=== PATIENT | male | born 1995 | race Two or more races ===

== ENCOUNTER 2021-05-23 22:42 | Emergency (ER) | payer MEDICAID ==
[~2021-05-23] VITALS: Ht 180.3 cm; Wt 127.3 kg
--- NOTE | 2021-05-23 23:11 | PHYS DOC ---
Past History Past Medical History: Sciatica General Adult HPI: HPI: ". I got really bad back pain.. I ve had it for 3 lyrs. but last two weeks it so severe..." Patient is a 26 year old male who presents with above hx and complaints lumbar sacral back pain. Patient localizes pain to lumbar area. There is some radiation in to the sciatic nerves bilaterally. Patient denies any recent trauma. No history of fever or chills. No problems with defecation or urination. Patient has had somewhat chronic back pain for the last 3 years. But has had a recent exacerbation last 2 weeks. Does have findings of paralumbar muscle spasm. Patient denies any history immunosuppression. Patient denies any history of new trauma. Patient denies any history of travel. Patient does not have a primary care physician he follows . Patient has been using Tylenol and ibuprofen for his discomfort. Review of Systems: Review of Systems: Constitutional: Denies fever or chills Eyes: Denies change in visual acuity HENT: Denies nasal congestion or sore throat Respiratory: Denies cough or shortness of breath Cardiovascular: Denies chest pain or edema GI: Denies abdominal pain, nausea, vomiting, bloody stools or diarrhea : Denies dysuria Musculoskeletal: Complaints of lower lumbar back pain Integument: Denies rash Neurologic: Denies headache, focal weakness or sensory changes Endocrine: Denies polyuria or polydipsia Lymphatic: Denies swollen glands Psychiatric: Denies depression or anxiety Family History: Family History: Noncontributory to presentation Current Medications: Current Meds: See nursing for home meds Allergies: Allergies: No known drug allergies Physical Exam: PE: Constitutional: Well developed, well nourished, no acute distress, non-toxic appearance. [] HENT: Normocephalic, atraumatic, bilateral external ears normal, oropharynx moist, no oral exudates, nose normal. [] Eyes: PERRLA, EOMI, conjunctiva normal, no discharge. [] Neck: Normal range of motion, no tenderness, supple, no stridor. [] Cardiovascular:Heart rate regular rhythm, no murmur [] Lungs & Thorax: Bilateral breath sounds clear to auscultation [] Abdomen: Bowel sounds normal, soft, no tenderness, no masses, no pulsatile masses. No ascites male. Testicles descended. No saddle loss. Skin: Warm, dry, no erythema, no rash. Tattoos Back: Lumbar sacral muscle spasms and tenderness, no midline tenderness, no CVA tenderness. Does have tenderness along the sciatic nerve bilaterally into hips. Extremities: No tenderness, no cyanosis, no clubbing, ROM intact, no edema. Pain with straight leg lift bilaterally. Neurologic: Alert and oriented X 3, normal motor function, normal sensory function, no focal deficits noted. [] Psychologic: Affect anxious, judgement normal, mood normal. [] EKG: EKG: [] Radiology/Procedures: Radiology/Procedures: [][address] [address] IMAGING REPORT Signed PATIENT: [place] DIAL RACCOUNT: [id number] : 1995 LOCATION: ER AGE: 26 SEX: M EXAM STATUS: REG ER ORD. PHYSICIAN: CASSIDY PICKENS MD REASON: marked increase back pain, mid line, CHRONIC LBP, OLD INJURY PROCEDURE: CT LUMBAR SPINE WO CONTRAST CT LUMBAR SPINE WO Date: 05/23/2021 11:54 PM Indication: marked increase back pain, mid line, CHRONIC LBP, OLD INJURY Comparison: None. Technique: Helical CT images of the lumbar spine were obtained without contrast. Coronal and sagittal reformatted images were also performed. One or more of the following dose reduction techniques were utilized: Automated exposure control (AEC), Adjustment of mA and/or kV according to patient size, Use of iterative reconstruction technique such as ASiR, CT scan done according to ALARA and image gently/image wisely. Findings: The lumbar spine is normally aligned. No acute fracture. Multilevel Schmorl's nodes. Mild degenerative disc disease. No aggressive lytic or blastic osseous lesion. No high grade spinal canal stenosis or neuroforaminal narrowing. No soft tissue abnormality within the visualized abdomen or pelvis. The visualized abdominal aorta is normal caliber. IMPRESSION: No acute osseous abnormality of the lumbar spine. No high grade spinal canal stenosis or neuroforaminal narrowing Electronically signed by: Iftikhar Cheng MD (05/24/2021 12:24 AM) [facility] DICTATED AND SIGNED BY: IFTIKHAR CHENG MD DATE: 05/24/21 0020 CC: CASSIDY PICKENS MD; PCP,UNKNOWN ~MTH0 0 Heart Score: C/O Chest Pain: N/A Risk Factors: Risk Factors: DM, Current or recent (<one month) smoker, HTN, HLP, family history of CAD, obesity. Risk Scores: Score 0 - 3: 2.5% MACE over next 6 weeks - Discharge Home Score 4 - 6: 20.3% MACE over next 6 weeks - Admit for Clinical Observation Score 7 - 10: 72.7% MACE over next 6 weeks - Early Invasive Strategies Course & Med Decision Making: Course & Med Decision Making Pertinent Labs and Imaging studies reviewed. (See chart for details) Patient to take Tylenol and ibuprofen for pain. For marked pain use lidocaine patches. Follow-up primary care. If persistent lumbosacral pain. Consider physical therapy and massage therapy. Must follow-up with primary care however. Return if any concerns. Impression: 1. Sciatica [] Dragon Disclaimer: Dragon Disclaimer: This electronic medical record was generated, in whole or in part, using a voice recognition dictation system. Departure Departure: Referrals: PCP,UNKNOWN (PCP) Scripts Lidocaine (Lidocaine PATCH ) 1 Each Adh..patch 1 EACH TP DAILY for FOR LOCAL PAIN, #10 PATCH REMOVE AFTER 12 HOURS Prov: CASSIDY PICKENS MD 05/24/21 Dragon Disclaimer This chart was dictated in whole or in part using Voice Recognition software in a busy, high-work load, and often noisy Emergency Department environment. It may contain unintended and wholly unrecognized errors or omissions. Dragon Disclaimer This chart was dictated in whole or in part using Voice Recognition software in a busy, high-work load, and often noisy Emergency Department environment. It may contain unintended and wholly unrecognized errors or omissions. CASSIDY PICKENS MD May 23, 2021 23:11
[2021-05-23] MEDS ORDERED: KETOROLAC 60 MG/2 ML VIAL. IM ONE (23:45)
[2021-05-23] MEDS ORDERED: methylPREDNISolone ACETATE 40 MG/ML VIAL. IM ONE (23:45)
[2021-05-23] MEDS ORDERED: ORPHENADRINE CITRATE 60 MG/2 ML VIAL. IM ONE (23:45)
--- NOTE | 2021-05-24 00:26 | RAD ---
CT LUMBAR SPINE WO Date: 05/23/2021 11:54 PM Indication: marked increase back pain, mid line, CHRONIC LBP, OLD INJURY Comparison: None. Technique: Helical CT images of the lumbar spine were obtained without contrast. Coronal and sagitta l reformatted images were also performed. One or more of the following dose reduction techniques were utilized: Automated exposure control (AEC), Adjustment of mA and/or kV according to patient size, Us e of iterative reconstruction technique such as ASiR, CT scan done according to ALARA and image gentl y/image wisely. Findings: The lumbar spine is normally aligned. No acute fracture. Multilevel Schmorl's nodes. Mild degenerativ e disc disease. No aggressive lytic or blastic osseous lesion. No high grade spinal canal stenosis or neuroforaminal narrowing. No soft tissue abnormality within the visualized abdomen or pelvis. The visualized abdominal aorta is normal caliber. IMPRESSION: No acute osseous abnormality of the lumbar spine. No high grade spinal canal stenosis or neuroforaminal narrowing Electronically signed by: Yoshi Becerra MD (05/24/2021 12:24 AM) [facility]
[2021-05-24 00:50] LABS: BILIRUBIN,URINE NEG (NEG); CLARITY,URINE CLEAR; COLOR,URINE YELLOW; GLUCOSE,URINE NEG (NEG); NITRITE,URINE NEG (NEG); UROBILINOGEN,URINE 0.2 mg/dL (0.2 mg/dL)
[2021-05-24 00:51] LABS: BACTERIA,URINE 0 /HPF (0-FEW); SQUAMOUS EPITHELIAL CELL,UR OCC /LPF; WBC,URINE OCC /HPF (0-4)
[2021-05-24] MEDS ORDERED: LIDO700A21 TP (01:10)
[2021-05-24 01:20] VITALS: BP 150/84
== END 2021-05-24 01:33 | disposition home or self-care (01) ==
LOC: ER 22:42
DX: M54.42 Lumbago with sciatica, left side (principal); M54.41 Lumbago with sciatica, right side; M53.3 Sacrococcygeal disorders, not elsewhere classified
CPT/HCPCS: 72131; 81001; 96372; 99284; J1030; J1885; J2360

== ENCOUNTER 2022-01-09 04:40 | Emergency (ER) | payer OTHER, MEDICAID ==
[~2022-01-09] VITALS: Ht 172.7 cm; Wt 125.2 kg
[~2022-01-09 04:40] MED LIST: LIDO700A21 TP
--- NOTE | 2022-01-09 04:52 | PHYS DOC ---
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 States he is not up-to-date on tetanus. Denies any other injuries. Pain 7 out of 10. No allergies. No medical problems. Review of Systems Review of Systems Review of systems otherwise unremarkable except noted in HPI Allergies Allergies Allergies Coded Allergies Type Severity Reaction Last Updated Verified No Known Drug Allergies 05/23/21 No Physical Exam Physical Exam Constitutional: Well developed, well nourished, no acute distress, non-toxic appearance. [] HENT: Normocephalic, atraumatic, bilateral external ears normal, oropharynx moist, no oral exudates, nose normal. [] Skin: Warm, dry, no erythema, no rash. [] Back: No tenderness, no CVA tenderness. [] Extremities: Distal tip of third digit amputated at the last approximate 3 mm, bone exposed, bleeding controlled, neurovascular exam and musculoskeletal exam intact otherwise Neurologic: Alert and oriented X 3, normal motor function, normal sensory function, no focal deficits noted. [] Psychologic: Affect normal, judgement normal, mood normal. [] EKG EKG [] Radiology/Procedures Radiology/Procedures [] Heart Score C/O Chest Pain: No Risk Factors: Risk Factors: DM, Current or recent (<one month) smoker, HTN, HLP, family history of CAD, obesity. Risk Scores: Risk Factors: DM, Current or recent (<one month) smoker, HTN, HLP, family history of CAD, obesity. Course & Med Decision Making Course & Med Decision Making Patient is a 26-year-old who presents to the emergency department with third rig ht distal tip amputation Signs not concerning. Physical exam noted above. Wound cleaned. Given pain medicine. Updated tetanus. Gave dose of Ancef in the ED 1% lidocaine used for digital block giving 2 mils on either side of the third digit to achieve anesthesia. Six 5-0 sutures of Ethilon placed to close wound as good as possible. As wound is flat, there is some exposed area which was bandaged with nonstick. Discussed findings with patient. Discussed antibiotic use. Discussed wound management and given wound management instructions and demonstration. Advised that he must follow-up first thing in the morning with plastic surgery or hand surgery and given contact information for . Advised to call first thing in the morning or just show up when they open at 8 AM. Advised to take all antibiotics as prescribed. Given pain medicine and discussed pain management at home. Gave strict return precautions to the ED. Patient grateful, verbalized understanding and agreed to plan of discharge. [] Dragon Disclaimer Dragon Disclaimer This electronic medical record was generated, in whole or in part, using a voice recognition dictation system. Departure Departure: Impression: Primary Impression: Fingertip amputation Disposition: HOME / SELF CARE / HOMELESS Condition: GOOD Referrals: PCP,UNKNOWN (PCP) FRANCOISE IRVIN MD Patient Instructions: Fingertip Injuries and Amputations, Wound Care, [id number] Additional Instructions: Thank you for coming into the emergency department tonight and allowing us to take care of you. Please read the attached information carefully to go over things we discussed. Please take all of your antibiotics as prescribed and until gone. Please take your pain medicine as prescribed. Please keep your bandage on for 48 hours and do not submerge in water. After that you can change it once daily, washing your wound with warm soapy water, drying and replacing the bandage as demonstrated with the materials given to you. It is very important that you follow-up first thing in the morning both your primary care physician. If you do not have 1 you were given a number for a local primary care physician to establish care. It is also very important that you follow-up very first thing in the morning with a surgical specialty such as a plastic surgeon. The plastic surgeon at is well-known and opens tomorrow at 8 AM. The phone number for the main number at is [phone] and the address is [address] [place] [address]. You must see a primary care physician and/or an orthopedic or plastic surgeon this week and have your wound evaluated and set up a follow-up appointment for suture removal. Please come back to the emergency department immediately with new or concerning symptoms as we discussed. Scripts Amoxicillin/Potassium Clav (AMOX TR-K CLV 875-125 MG TAB) 1 Each Tablet 1 TAB PO BID for wound for 10 Days, #20 TAB Prov: EUN ELIAS MD 01/09/22 EUN ELIAS MD Jan 09, 2022 04:52
[2022-01-09] MEDS ORDERED: AMOX1TAB11 PO (05:18)
[2022-01-09] MEDS ORDERED: MORPHINE SULFATE 4 MG/ML DISP.SYRIN. IM ONE (05:30)
[2022-01-09] MEDS ORDERED: LIDOCAINE 1% PF 30 ML VIAL. INJ ONE (05:30)
[2022-01-09] MEDS ORDERED: ceFAZolin IM 1 GM VIAL IM ONE ×2 (05:30)
--- NOTE | 2022-01-09 05:41 | RAD ---
XR HAND_RIGHT 2 VIEWS DATE: 01/09/2022 5:03 AM INDICATION: trauma to 3rd digit COMPARISON: None. FINDINGS/ IMPRESSION: Traumatic amputation along the distal aspect of the third digit with involvement of the third distal phalanx distal tuft. Electronically signed by: Yoshi Becerra MD (01/09/2022 5:38 AM) [facility]
[2022-01-09 06:00] VITALS: BP 150/95
[2022-01-09] MEDS ORDERED: DIPHTH,PERTUSS(ACELL),TET TOX 0.5 ML DISP.SYRIN. VAX IM ONE (06:00)
[2022-01-09] MEDS ORDERED: START PACK - traMADol 1 STARTPACK TABLET PO ONE (07:00)
== END 2022-01-09 06:04 | disposition home or self-care (01) ==
LOC: ER 04:40
DX: S68.112A Complete traumatic metacarpophalangeal amputation of right middle finger, initial encounter (principal); W27.8XXA Contact with other nonpowered hand tool, initial encounter; Y93.89 Activity, other specified; Y92.89 Other specified places as the place of occurrence of the external cause; Y99.8 Other external cause status
CPT/HCPCS: 12001; 73120; 90471; 90715; 96372; 99284; J0690; J2270; 64450